=== PATIENT | female | born 1950 | race Caucasian/White ===

== ENCOUNTER → 2016-08-31 | Outpatient (CLI) | payer OTHER ==
[~2016-08-31] MED LIST: ALEVE220 MG PO; BACTROBAN N1 GM/TUBE NOSE; DECADRON1 MG PO; DECADRON4 MG PO; DELTASONE20 MG PO; EFFEXOR XR75 MG PO; PEPCID20 MG PO; PERCOCET 5-3251 EACH PO; PERIDEX15 ML PO; VALIUM5 MG PO; VANCOCIN HCL125 MG IV
== END | disposition disaster alternative care site (69) ==
LOC: GBCOE 13:46
DX: Z12.31 Encounter for screening mammogram for malignant neoplasm of breast (principal)
CPT/HCPCS: G0202